=== PATIENT | male | born 1950 | race Caucasian/White ===

== ENCOUNTER 2023-11-12 14:58 | Emergency (ER) | payer OTHER, MEDICAID ==
[2023-11-12] MEDS ORDERED: IBUP-2213 PO (19:32)
== END 2023-11-12 15:42 | disposition left against medical advice (07) ==
LOC: MED 14:58
DX: M25.519 Pain in unspecified shoulder (principal); Z53.21 Procedure and treatment not carried out due to patient leaving prior to being seen by health care provider

== ENCOUNTER 2023-11-12 16:33 | Emergency (ER) | payer OTHER, MEDICAID ==
[~2023-11-12] VITALS: Ht 177.8 cm; Wt 81.6 kg
[2023-11-12 16:56] VITALS: BP 135/99; PULSE 100; RESP 18; TEMP 97.3; O2SAT 95
[2023-11-12] MEDS: IBUPROFEN 600 MG TAB PO ONE (17:40)
[2023-11-12] MEDS ORDERED: IBUP-2213 PO (19:32)
[2023-11-12 19:53] VITALS: BP 135/99; PULSE 100; RESP 18; TEMP 97.3; O2SAT 95
== END 2023-11-12 19:53 | disposition home or self-care (01) ==
LOC: MED 16:33
DX: M25.511 Pain in right shoulder (principal); Z79.899 Other long term (current) drug therapy
CPT/HCPCS: 73030; 99283